=== PATIENT | male | born 1950 ===

== ENCOUNTER 2019-12-26 12:52 | Outpatient (REF) | payer MEDICARE, SELFPAY | END 2019-12-26 12:53 | disposition home or self-care (01) | LOC: HO.LAB 12:52 | PROVIDERS: PCP Internal Medicine; Visit Provider Internal Medicine | DX: Z20.828 Contact with and (suspected) exposure to other viral communicable diseases (principal) | CPT/HCPCS: 87635 ==

== ENCOUNTER 2020-03-13 11:53 | Outpatient (REF) | payer MEDICARE, MEDICAID, SELFPAY | END 2020-03-13 11:54 | disposition home or self-care (01) | LOC: HO.LAB 11:53 | PROVIDERS: Visit Provider Internal Medicine | DX: Z20.822 Contact with and (suspected) exposure to COVID-19 (principal) | CPT/HCPCS: 36415; C9803; U0003 ==

== ENCOUNTER 2022-08-21 16:30 | Emergency (ER) | payer MEDICARE, MEDICAID, SELFPAY ==
--- NOTE | ~2022-08-21 | XR_ITS ---
EXAMINATION: XR CHEST CLINICAL INFORMATION: Reason for Exam cough COMPARISON: Chest radiograph 10/13/2018 TECHNIQUE: 2 views of the chest FINDINGS: Lines and tubes: None. Low lung volumes. Streaky bibasilar airspace opacities likely reflect atelectasis. No pleural effusion. No pneumothorax. Unchanged cardiomediastinal silhouette. XR/XR chest 2V IMPRESSION: Low lung volumes. Streaky bibasilar airspace opacities likely reflect atelectasis.
[2022-08-21 16:43] VITALS: BP 148/94; PULSE 80; RESP 18; TEMP 36.8; O2SAT 96; BMI 30.7
--- NOTE | 2022-08-21 16:43 | ED.GENADULT ---
HPI - General Adult General Chief complaint: General Medical Stated complaint: Body aches/Sore throat Time Seen by Provider: 08/21/22 20:51 Source: patient Mode of arrival: ambulatory Limitations: no limitations History of Present Illness HPI narrative: 71-year-old male presents with fatigue, malaise, diffuse generalized headache without vision changes or dizziness, myalgias, sore throat, congestion and chest, dry cough, subjective fevers and chills for the past 3 days worsening. Patient reports that at home with similar symptoms. Denies chest pain, shortness of breath, nausea, vomiting, vision changes, dizziness, weakness, abdominal pain, changes in bowel habits or urination. Related Data Previous Rx's Medication Instructions Recorded albuterol sulfate 90 mcg/actuation 2 inh inhalation Q4-6H PRN 08/21/22 breath activated powder inhaler shortness of breath or wheezing #1 ea azithromycin 250 mg tablet See Rx Instructions PO .COMPLEX #6 08/21/22 tabs prednisone 20 mg tablet 40 mg PO DAILY 5 days #10 tabs 08/21/22 Allergies Allergy/AdvReac Type Severity Reaction Status Date / Time No Known Allergies Allergy Unverified 11/16/19 16:11 Review of Systems Review of Systems: Constitutional : No Weight loss, + Fever, + Chills, + Fatigue, + Malaise ENT/Mouth : No sore throat, No Rhinorrhea Eyes: No Eye Pain, No Swelling, No Redness Cardiovascular : No Chest Pain, No SOB, No Dyspnea on Exertion, No Orthopnea, No Edema, No Palpitations Respiratory : No Cough, No Sputum, No Wheezing Gastrointestinal : No Nausea, No Vomiting, No Diarrhea, No Constipation, No abdominal Pain, No Hematochezia, No Melena Genitourinary : No Dysuria, No Urinary Frequency, No Hematuria, Musculoskeletal : No joint pain, + Myalgias, No Joint Swelling Skin : No Skin Lesions, No rash Neuro : No Weakness, No Numbness, No Dizziness, + Headache Psych : No Anxiety/Panic, No Depression All other systems reviewed and are negative Yes all other systems are reviewed and are negative [facility] Past Medical History Attestation statement: The following information was validated with the patient. Source: old records reviewed and nursing notes reviewed Social History Social History Smoked in Last 30 Days: No Use of substances other than those prescribed or required for medical reasons: No Advance Directives: No Advance Directives Information Provided: No Physical Exam ED Vital Signs: Vital Signs - 24 hr 08/21/22 16:43 Temperature 98.3 F Pulse Rate 80 Respiratory Rate 18 Blood Pressure 148/94 H Pulse Oximetry 96 Oxygen Delivery Method Room Air BMI result Body Mass Index 30.7 Vital signs stable patient is saturating 96% even after ambulation Appearance: Alert.? Oriented X3.? No acute distress.? Head: Normocephalic, atraumatic, no step-offs or deformities Eyes: Pupils equal, round and reactive to light.? ENT: Pharynx normal.? No erythema, edema, exudates. Uvula midline. Speaking in full sentences controlling secretions well. Neck: Normal inspection.? Neck supple.? No meningeal sign CVS: Normal heart rate and rhythm.? Pulses normal.? Respiratory: No respiratory distress.? Breath sounds normal.? Abdomen: Soft and nontender.? Skin: Skin warm and dry.? Normal skin color.? Normal skin turgor.? Extremities: No lower extremity edema.? No calf ttp. 5/5 strength to bilateral upper and lower extremities Neuro: Oriented X 3.? No motor deficit.? No sensory deficit. CN 2-12 intact Course Course Course Narrative: RME performed by Maria Victoria Lynn PA-C. Patient is a 71 year old assigned male at presenting to the emergency department with body aches and a sore throat. Swabs ordered. Patient placed back in the waiting room pending room availability and results. Reevaluation(s) Reevaluation #1: X-ray with low lung volumes, strictly bibasilar airspace opacities likely reflect atelectasis, patient with cough and fever, will give a Z-Isaías, prednisone, steroids to cover for viral pneumonia. Patient appears well, like to go home. Will send him home with CDC guidelines. Educated patient on diagnosis and treatment plan, answered all question, patient verbalizes understanding. At this time patient will be discharged home, advised to return with new or worsening symptoms. Educated on worrisome signs and symptoms and when to return. At this time I feel comfortable discharge home. Time: 21:45 Medical Decision Making Medical Decision Making MDM Narrative: 71-year-old male presents with viral like symptoms for the past 3 days with at home with similar symptoms Physical exam benign. Likely viral illness. Unlikely epiglottitis, peritonsillar abscess, retropharyngeal abscess, threatened airway, strep pharyngitis, pneumonia, PE, ACS, CHF, intracranial hemorrhage, stroke, posterior stroke. Plan viral testing and x-ray Differential Diagnosis Differential Diagnoses: The differential diagnosis associated with the presentation includes Likely viral illness. Unlikely epiglottitis, peritonsillar abscess, retropharyngeal abscess, threatened airway, strep pharyngitis, pneumonia, PE, ACS, CHF, intracranial hemorrhage, stroke, posterior stroke. Admission/Observation Consideration of admission/observation: Escalation of care including admission/observation considered Unlikely Lab Data MDM Lab Attestation statement: I reviewed the patient's lab results. Labs: Lab Results 08/21/22 08/21/22 08/21/22 Range/Units 16:53 16:53 16:53 COVID-19 (KWADWO) Positive A (Negative) COVID-19 Clin Com See Note Influenza Type A (BIJAN) Negative (Negative) Influenza Type B (BIJAN) Negative (Negative) Influenza A & B Note See Note S. pyogenes GrpA BIJAN Negative (Negative) Independent Interpretation I performed an independent interpretation of an: Plain X-Ray (XR/XR chest 2V IMPRESSION: Low lung volumes. Streaky bibasilar airspace opacities likely reflect atelectasis. ) Radiology Impression Discussion of test interpretation with radiology: I have reviewed the radiologist's reading. Prescription Management I considered prescription management with: Antibiotic Core Measures AMI core measures followed: Yes Measure exclusions: not indicated Critical Care Time Critical Care Time Critical Care Time: No Discharge Plan Discharge Clinical Impression: COVID-19 Patient Disposition: Home, Self-Care Instructions: COVID-19 (Coronavirus Disease 2019) (ED) Additional Instructions: Take your medications as prescribed. If you were prescribed antibiotics today, it is important that you take your medication to their entirety, do not skip any doses, do not finish them early. Today you tested positive for COVID-19. Take Ibuprofen or Tylenol as needed for fevers or body aches. Quarantine for 5 days and ensure you wear a mask. After 5 days you should wear a mask for 5 days after that. Practice social distancing and good hand hygiene. Drink plenty of fluids. Follow-up with your primary care provider this week. Return to the emergency department with new or worsening symptoms. In case of emergency call 911 You can purchase a pulse oximeter from your local pharmacy or grocery store, and monitor your oxygen saturation if it goes below 94% you should return to the emergency department for further evaluation. XR/XR chest 2V IMPRESSION: Low lung volumes. Streaky bibasilar airspace opacities likely reflect atelectasis. ? Prescriptions: New azithromycin 250 mg tablet See Rx Instructions .ROUTE .COMPLEX Qty: 6 0RF Rx Instructions: For 250 mg dose pack: take 500 mg today (day 1), then 250 mg for 4 days (days 2-5) albuterol sulfate 90 mcg/actuation aerosol powdr breath activated 2 inh inhalation Q4-6H PRN (Reason: shortness of breath or wheezing) Qty: 1 0RF prednisone 20 mg tablet 40 mg PO DAILY 5 Days Qty: 10 0RF Referrals: Ted Urban MD [Primary Care Provider] - 2 days Stand Alone Forms: Work/School Release Interventions: ED Discharge Assessment Last Done: 08/21/22 21:37 Discharge Date/Time: 08/21/22 21:37
[2022-08-21 17:17] LABS: IDNOW Serial# BCCEAD1C
[2022-08-21 17:18] LABS: COVID-19 Test Positive (Negative)
[2022-08-21 17:30] LABS: IDNOW Serial# 9DB6401D; Influenza A Negative (Negative); Influenza B2 Negative (Negative)
[2022-08-21 17:58] LABS: IDNOW Serial# 08D9AD1C; Strep A Nucleic Acid Negative (Negative)
== END 2022-08-21 21:37 | disposition home or self-care (01) ==
PROVIDERS: Physician Assistant Medical; Emergency Provider Internal Medicine; PCP Internal Medicine
DX: U07.1 COVID-19 (principal); M79.10 Myalgia, unspecified site; R51.9 Headache, unspecified; R05.9 Cough, unspecified; Z79.899 Other long term (current) drug therapy
CPT/HCPCS: 71046; 87502; 87635; 87651; 99283

== ENCOUNTER 2022-09-07 16:46 | Outpatient (REF) | payer MEDICARE, MEDICAID, SELFPAY ==
[2022-09-07 17:03] LABS: MANUAL DIFF FLAG NO
[2022-09-07 17:36] LABS: Basophils Absolute Auto 0.1 X10*3/uL (0.0-0.2); Basophils Percent Auto 0.6 % (0-2); Eosinophils Absolute Auto 0.1 X10*3/uL (0.0-0.4); Eosinophils Percent Auto 0.8 % (0-4); Hematocrit 42.1 % (42.0-52.0); Hemoglobin 14.5 g/dl (14.0-18.0); Imm Gran Abs Auto 0.03 X10*3/uL (0.00-0.03); Imm Gran Pct Auto 0.3 % (0.0-0.4); Lymphocytes Absolute Auto 2.7 X10*3/uL (1.2-4.9); Lymphocytes Percent Auto 31.5 % (20-40); Mean Corpuscular HGB Conc 34.4 g/dl (31.0-36.0); Mean Corpuscular Volume 95.9 fL (80.0-98.0); Mean Platelet Volume 9.4 fL (9.4-12.4); Monocytes Absolute Auto 0.8 X10*3/uL (0.1-1.2); Monocytes Percent Auto 9.5 % (2-11); Neutrophils Absolute Auto 4.9 x10*3/uL (2.0-8.3); Neutrophils Percent Auto 57.3 % (45-73); Platelet Count 318 X10*3/uL (160-400); Red Blood Count 4.39 X10*6/uL (4.60-5.80); Red Cell Distribution Width 12.4 % (11.0-16.0); White Blood Count 8.6 X10*3/uL (4.8-10.8)
[2022-09-07 18:21] LABS: Alanine Aminotransferase 21 U/L (0-40); Alkaline Phosphatase 50 U/L (39-117); Anion Gap 14 (12-20); Aspartate Amino Transferase 15 U/L (5-37); Bilirubin Total 0.3 mg/dL (0.0-1.0); Blood Urea Nitrogen 10 mg/dL (9-16); Calcium 8.4 mg/dL (8.4-10.2); Carbon Dioxide 27 mmol/L (22-29); Chloride 105 mmol/L (96-108); Cholesterol 201 mg/dL; Estimated Glomerular Filt Rate > 60; Glucose Random 70 mg/dL (60-115); Sodium 142 mmol/L (135-145); Total Protein 7.6 g/dL (6.5-8.0)
[2022-09-07 18:37] LABS: Prostate Specific Antigen 0.59 ng/mL (<0.05-4.0)
== END 2022-09-07 16:47 | disposition home or self-care (01) ==
LOC: HO.LAB 16:46
PROVIDERS: PCP Internal Medicine; Visit Provider Internal Medicine
DX: Z12.5 Encounter for screening for malignant neoplasm of prostate (principal); R63.5 Abnormal weight gain; Z86.16 Personal history of COVID-19; H40.9 Unspecified glaucoma
CPT/HCPCS: 36415; 80053; 82465; 84153; 85025

== ENCOUNTER 2023-01-15 13:52 | Emergency (ER) | payer OTHER, MEDICARE, MEDICAID, SELFPAY ==
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
[2023-01-15 14:52] VITALS: BP 138/75; PULSE 74; RESP 16; TEMP 36.8; O2SAT 98; BMI 30.5
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
[2023-01-15 17:50] VITALS: BP 143/89; PULSE 72; RESP 18; O2SAT 96
== END 2023-01-15 18:00 | disposition home or self-care (01) ==
PROVIDERS: Emergency Provider Emergency Medicine; PCP Internal Medicine
DX: S39.012A Strain of muscle, fascia and tendon of lower back, initial encounter (principal); S16.1XXA Strain of muscle, fascia and tendon at neck level, initial encounter; S80.02XA Contusion of left knee, initial encounter; R51.9 Headache, unspecified; M54.2 Cervicalgia; V43.52XA Car driver injured in collision with other type car in traffic accident, initial encounter; Y93.9 Activity, unspecified; Y92.410 Unspecified street and highway as the place of occurrence of the external cause; Y99.9 Unspecified external cause status
CPT/HCPCS: 70450; 72100; 72125; 99284

== ENCOUNTER 2023-05-05 10:06 | Day surgery (SDC) | payer MEDICARE, MEDICAID, SELFPAY ==
[2023-05-03 15:26] VITALS: BMI 31.3
--- NOTE | 2023-05-04 10:45 | P.CONAN_ITS ---
Documented by User: Chichi Carias NP 05/04/23 10:45 HPI - Anesthesia Eval Consult details Narrative: 72yo M for Colonoscopy [facility] Active Problems Active Problems: All Active Problems (Updated 05/03/23 @ 15:27 by Anahi Ellsworth RN) COVID-19 (Acute) Past Medical History Medical History Glaucoma Surgical History Surgical History Hx of eye surgery H/O colonoscopy Social History Social History (Updated 05/03/23 @ 15:28 by Anahi Ellsworth RN) Alcohol intake: never Patient Tobacco Use Status: Never used Tobacco Use of substances other than those prescribed or required for medical reasons: No Are you DNR?: No Advance Directives: No Advance Directives Information Provided: Yes Meds Allergies Allergy/AdvReac Type Severity Reaction Status Date / Time No Known Allergies Allergy Unverified 11/16/19 16:11 Home Medications Medication Instructions Recorded Confirmed Last Taken Type bimatoprost 0.01 % eye drops 1 drp ophthalmic (eye) BEDTIME 05/03/23 05/03/23 Unknown History (Lumigan) brimonidine 0.2 % eye drops 1 drp ophthalmic (eye) BID 05/03/23 05/03/23 Unknown History dorzolamide 22.3 mg-timolol 6.8 1 drp ophthalmic (eye) BID 05/03/23 05/03/23 Unknown History mg/mL eye drops Exam Height,Weight and Vital Signs: Height 5 ft 6 in Weight 87.997 kg Assessment and Plan Assessment Anesthesia Assessment: Chart Reviewed Documented by User: Tyron Warner MD 05/05/23 11:15 [facility] Past Medical History Medical History Glaucoma Family History Family history of problems with anesthesia: No Surgical History Surgical History Hx of eye surgery H/O colonoscopy History of Problems with Anesthesia: No Social History Social History (Updated 05/03/23 @ 15:28 by Anahi Ellsworth RN) Alcohol intake: never Patient Tobacco Use Status: Never used Tobacco Use of substances other than those prescribed or required for medical reasons: No Are you DNR?: No Advance Directives: No Advance Directives Information Provided: Yes Meds Allergies Allergy/AdvReac Type Severity Reaction Status Date / Time No Known Allergies Allergy Unverified 11/16/19 16:11 Home Medications Medication Instructions Recorded Confirmed Last Taken Type bimatoprost 0.01 % eye drops 1 drp ophthalmic (eye) BEDTIME 05/03/23 05/03/23 Unknown History (Lumigan) brimonidine 0.2 % eye drops 1 drp ophthalmic (eye) BID 05/03/23 05/03/23 Unknown History dorzolamide 22.3 mg-timolol 6.8 1 drp ophthalmic (eye) BID 05/03/23 05/03/23 Unknown History mg/mL eye drops Exam Airway Mallampati Class: III TM Dist: <=3cm Neck ROM: Full Loose/Missing/Broken Teeth: No (rrr) Lungs: cta b/l Assessment and Plan Final Anesthetic Review Family History of Problems with Anesthesia: No History of Problems with Anesthesia: No NPO: Yes ASA Class: II Final Preanesthetic Review: No Changes in Pt Med Stat, Meds/Allgs Chart Reviewed, Consent Obtained/Reviewed and Anes Risks/Benef Reviewed Patient Risk: Low Procedure Risk: Low Anesthetic Plan Anesthetic Plan: MAC: Disposition: Standard PACU
[2023-05-05 10:17] VITALS: BMI 30.2
[2023-05-05 10:34] VITALS: BP 126/83; PULSE 76; RESP 16; TEMP 36.7; O2SAT 96
[2023-05-05] MEDS: Lactated Ringers 1,000 ML 100 ML IVCONT (10:42)
[2023-05-05 11:58] VITALS: BP 100/63; PULSE 84; RESP 16; TEMP 36.3; O2SAT 95
--- NOTE | 2023-05-05 12:02 | P.BOP_ITS ---
Brief Operative Note Date of Service: 05/05/23 Pre-op diagnosis: Screening Post-op diagnosis: other (Diverticulosis) Procedure: Colonoscopy to the cecum and TI Surgeon: Matthew Nagy MD Anesthesia: MAC Was an Wide Area Network Systems Administrator used for this Procedure?: No Estimated blood loss (mL): 0 Pathology: none sent Condition: stable Disposition: PACU
[2023-05-05 12:29] VITALS: BP 102/63; PULSE 73; RESP 18; TEMP 36.1; O2SAT 95
--- NOTE | 2023-05-05 12:47 | OP_ITS ---
DATE OF SERVICE: 05/05/2023 SURGEON: Matthew Nagy MD INDICATIONS: The patient presents for evaluation of colorectal cancer screening. Full consent has been obtained from him for this, including risks of bleeding and perforation. PREOPERATIVE DIAGNOSIS: Colorectal cancer screening. POSTOPERATIVE DIAGNOSIS: Colorectal cancer screening, sigmoid diverticulosis and internal hemorrhoids. PROCEDURE PERFORMED: Colonoscopy to the cecum and terminal ileum. ESTIMATED BLOOD LOSS: COMPLICATIONS: ANESTHESIA: Medication used: Monitored anesthesia care. ASSISTANTS: SPECIMENS: DESCRIPTION OF PROCEDURE: The patient was placed in the left lateral decubitus position. The digital rectal exam revealed no abnormalities. The Olympus video pediatric colonoscope was entered into the rectum and advanced easily to the cecum. Once in the cecum, I did identify a normal-appearing cecal pouch with appendiceal orifice and a normal-appearing ileocecal valve. The terminal ileum was cannulated and appeared normal. The scope was withdrawn back from the colon. The entire cecum and the ileocecal valve appeared normal. The scope was slowly withdrawn assessing all mucosal surfaces carefully. Preparation was excellent. I did not visualize any sign of polyps, colitis, or angiodysplasia. There was a mild amount of diverticulosis in the sigmoid colon. In the rectum, scope was retroflexed, visualizing minimal internal hemorrhoids, but no other pathology. The rectal mucosa appeared normal. The scope was straightened and withdrawn from the patient. He tolerated the procedure well and was returned to the recovery area in stable condition. IMPRESSION: 1. Mild sigmoid diverticulosis. 2. Minimal internal hemorrhoids. PLAN: Given today's negative exam and his age, I do not think we need any further screening colonoscopies. He will, otherwise, see me on a p.r.n. basis. MD MARIN Abebe/RIOS / [phone]
== END 2023-05-05 13:04 | disposition home or self-care (01) ==
PROVIDERS: PCP Internal Medicine; Visit Provider Internal Medicine
PROC: 0DJD8ZZ Inspection of Lower Intestinal Tract, Via Natural or Artificial Opening Endoscopic (ICD-10-PCS; CPT 45378; principal; 2023-05-05 10:40)
DX: Z12.11 Encounter for screening for malignant neoplasm of colon (principal); K57.30 Diverticulosis of large intestine without perforation or abscess without bleeding; K64.8 Other hemorrhoids; H40.9 Unspecified glaucoma; Z79.899 Other long term (current) drug therapy; Z98.890 Other specified postprocedural states
CPT/HCPCS: G0121; J2704

== ENCOUNTER 2023-11-11 08:47 | Outpatient (REF) | payer MEDICARE, OTHER, SELFPAY ==
[2023-11-11 09:05] LABS: MANUAL DIFF FLAG NO
[2023-11-11 09:18] LABS: Basophils Absolute Auto 0.1 X10*3/uL (0.0-0.2); Basophils Percent Auto 0.6 % (0-2); Eosinophils Absolute Auto 0.1 X10*3/uL (0.0-0.4); Eosinophils Percent Auto 0.7 % (0-4); Hematocrit 43.2 % (42.0-52.0); Hemoglobin 15.2 g/dl (14.0-18.0); Imm Gran Abs Auto 0.03 X10*3/uL (0.00-0.03); Imm Gran Pct Auto 0.4 % (0.0-0.4); Lymphocytes Absolute Auto 3.1 X10*3/uL (1.2-4.9); Lymphocytes Percent Auto 36.7 % (20-40); Mean Corpuscular HGB Conc 35.2 g/dl (31.0-36.0); Mean Corpuscular Hemoglobin 33.7 pg (27.0-33.0); Mean Corpuscular Volume 95.8 fL (80.0-98.0); Mean Platelet Volume 9.3 fL (9.4-12.4); Monocytes Absolute Auto 0.7 X10*3/uL (0.1-1.2); Monocytes Percent Auto 8.4 % (2-11); Neutrophils Absolute Auto 4.5 x10*3/uL (2.0-8.3); Neutrophils Percent Auto 53.2 % (45-73); Platelet Count 266 X10*3/uL (160-400); Red Blood Count 4.51 X10*6/uL (4.60-5.80); White Blood Count 8.5 X10*3/uL (4.8-10.8)
[2023-11-11 09:49] LABS: Alanine Aminotransferase 14 U/L (0-40); Albumin Level 4.1 g/dL (3.5-5.0); Alkaline Phosphatase 52 U/L (39-117); Anion Gap 12 (12-20); Aspartate Amino Transferase 13 U/L (5-37); Bilirubin Total 0.5 mg/dL (0.0-1.0); Blood Urea Nitrogen 10 mg/dL (9-16); Calcium 9.1 mg/dL (8.4-10.2); Carbon Dioxide 28 mmol/L (22-29); Chloride 107 mmol/L (96-108); Cholesterol 181 mg/dL (<200); Estimated Glomerular Filt Rate > 60; Glucose Random 100 mg/dL (60-115); Potassium 4.6 mmol/L (3.3-5.1); Sodium 142 mmol/L (135-145); Total Protein 7.3 g/dL (6.5-8.0)
[2023-11-11 10:07] LABS: Prostate Specific Antigen 1.13 ng/mL (<0.05-4.0)
== END 2023-11-11 08:48 | disposition home or self-care (01) ==
LOC: HO.LAB 08:47
PROVIDERS: PCP Internal Medicine; Visit Provider Internal Medicine
DX: K57.30 Diverticulosis of large intestine without perforation or abscess without bleeding (principal); Z12.5 Encounter for screening for malignant neoplasm of prostate; E78.00 Pure hypercholesterolemia, unspecified
CPT/HCPCS: 36415; 80053; 82465; 84153; 85025

== ENCOUNTER 2024-02-09 09:18 | Outpatient (REF) | payer MEDICARE, OTHER, SELFPAY ==
--- NOTE | ~2024-02-09 | XR_ITS ---
EXAMINATION: XR CHEST CLINICAL INFORMATION: WEIGHT LOSS COMPARISON: 08/21/2022 TECHNIQUE: 2 views of the chest were obtained. FINDINGS: Lungs clear. No pleural effusions. Heart and pulmonary vessels are normal. XR/XR chest 2V IMPRESSION: No active disease. Electronically signed by: Ronni Madison MD 02/09/2024 01:47 PM [facility]
[2024-02-09 09:36] LABS: MANUAL DIFF FLAG NO
[2024-02-09 10:08] LABS: Basophils Percent Auto 0.4 % (0-2); Eosinophils Percent Auto 0.5 % (0-4); Hematocrit 43.6 % (42.0-52.0); Imm Gran Abs Auto 0.01 X10*3/uL (0.00-0.03); Imm Gran Pct Auto 0.1 % (0.0-0.4); Lymphocytes Absolute Auto 2.5 X10*3/uL (1.2-4.9); Lymphocytes Percent Auto 34.4 % (20-40); Mean Corpuscular HGB Conc 34.4 g/dl (31.0-36.0); Mean Corpuscular Volume 95.8 fL (80.0-98.0); Mean Platelet Volume 9.6 fL (9.4-12.4); Monocytes Absolute Auto 0.7 X10*3/uL (0.1-1.2); Monocytes Percent Auto 9.8 % (2-11); Neutrophils Percent Auto 54.8 % (45-73); Platelet Count 275 X10*3/uL (160-400); Red Blood Count 4.55 X10*6/uL (4.60-5.80); Red Cell Distribution Width 12.7 % (11.0-16.0); White Blood Count 7.4 X10*3/uL (4.8-10.8)
[2024-02-09 10:13] LABS: Estimated Average Glucose 103 mg/dL; Hemoglobin A1C 120.6238 umol/L; Hemoglobin A1c % 5.2 % (<6.0); Total Hemoglobin (HGBA1C) 3635.6486 umol/L
[2024-02-09 10:15] LABS: Appearance Urine Clear; Color Urine Yellow; Glucose Urine UA Negative (Negative); Leukocyte Esterase Urine Negative (Negative); Nitrite Urine Negative (Negative); PH 5.5 (5.0-9.0); Specific Gravity - Urine 1.025 (1.005-1.025); Urine Blood Negative (Negative); Urine Ketones Negative (Negative); Urine Protein Negative (Neg-Trace)
[2024-02-09 10:52] LABS: Alanine Aminotransferase 17 U/L (0-40); Albumin Level 4.1 g/dL (3.5-5.0); Alkaline Phosphatase 51 U/L (39-117); Anion Gap 9 (12-20); Aspartate Amino Transferase 17 U/L (5-37); Bilirubin Total 0.5 mg/dL (0.0-1.0); Blood Urea Nitrogen 13 mg/dL (9-16); Calcium 9.4 mg/dL (8.4-10.2); Carbon Dioxide 29 mmol/L (22-29); Chloride 108 mmol/L (96-108); Cholesterol 177 mg/dL (<200); Estimated Glomerular Filt Rate > 60; Glucose Random 102 mg/dL (60-115); Potassium 4.8 mmol/L (3.3-5.1); Sodium 141 mmol/L (135-145); Total Protein 7.3 g/dL (6.5-8.0)
[2024-02-09 11:02] LABS: Prostate Specific Antigen 0.97 ng/mL (<0.05-4.0)
--- OUTSIDE RECORDS SUMMARY | 2024-02-09 23:41 | XMS_ITS ---
Author Organization [facility] Address [address] [place] [id number] Care Team Providers Care Handicapper [employer] Name Role Phone Ted Urban MD Primary Care Provider Kaylen kumari NagyMatthew Unavailable [phone] ALLERGIES No Known Allergies REASON FOR VISIT Patient presents today for a COLON SCREENING MEDICATIONS Medication SIG (Take, Route, Frequency, Duration) Notes Start Date End Date Status Lumigan 0.01 % Ophthalmic for 75 Active Brimonidine Tartrate 0.2 % Ophthalmic for 90 Active Dorzolamide HCl-Timolol Mal 2-0.5 % INSTILL 1 DROP INTO BOTH EYES TWICE A DAY Ophthalmic for 90 Active SOCIAL HISTORY Tobacco Use: Social History Observation Description Date Details (start date - stop date) Never Smoker NA - NA Sex Assigned At : Social History Observation Description Sex Assigned At Unknown Tobacco Use/Smoking Question Answer Notes Patient is a nonsmoker Alcohol Screen Question Answer Notes Did you have a drink containing alcohol in the p ast year? No Points 0 Interpretation Negative PROBLEMS Problem Type ICD Code Onset Dates Problem Status W/U Status Risk SNOMED Code Notes Problem Colon cancer screening (Z12.11) Active confirmed 106298991 Problem Preprocedural examination (Z01.818) Active confirmed 920891193370938 VITAL SIGNS BMI 31.31 kg/m2 02/09/2023 Blood pressure systolic 00 mm Hg 02/10/20 23 Blood pressure diastolic 00 mm Hg 023 Height 5 ft 6 in in 02/09/2023 Temperature 98.2 degrees Fahrenheit 02/10/20 23 Weight 194 lbs 02/09/2023 Encounters Encounter Location Date Provider Diagnosis [facility] [address] [place] [address] 02/09/2023 Matthew Nagy Colon cancer screeni ng Z12.11 and Preprocedural examination Z01.818 ASSESSMENTS Encounter Date Diagnosis Assessment Notes Treatment Notes Treatment Clinical Notes 02/09/2023 Colon cancer screening (ICD-10 - Z12.11) 02/09/2023 Preprocedural examination (ICD-10 - Z01.818) PLAN OF TREATMENT Future Test Test Name Order Date COLONOSCOPY 02/09/2023 Next Appt Details Follow Up: prn, Reason: Progress Notes * Examination Category Sub-Category Detail Notes General Examination GENERAL APPEARANCE: pleasant , well nourished, well developed, in no acute distress HEAD: EYES: sclera non-icteric EARS: NOSE: THROAT: NECK/THYROID: no cervical lymphade nopathy, neck supple HEART: S1, S2 normal CHEST: LUNGS: clear to auscultatio n bilaterally ABDOMEN: normal bowel sounds, no guarding or rigidity, no guarding or rigidity, no masses palpable, soft, nontender, nondistended NEUROLOGIC: alert and oriented SKIN: nonjaundiced, no spi krystyna angiomata EXTREMITIES: no edema PERIPHERAL PULSES: BACK: BREASTS: MUSCULOSKELETAL: MALE GENITOURINARY: LYMPH NODES: RECTAL EXAM: FEMALE GENITOURINARY: ORAL CAVITY: mucosa moist
--- OUTSIDE RECORDS SUMMARY | 2024-02-09 23:41 | XMS_ITS ---
Author Organization [facility] Address [address] [place] [address] Care Team Providers Care 3D Animator Name Role Phone Ted Urban MD Primary Care Provider Merlea Matthew Cevallos Unavailable [phone] REASON FOR VISIT screening PROBLEMS Problem Type ICD Code Onset Dates Problem Status W/U Status Risk SNOMED Code Notes Problem Diverticulosis of large intestine without perforation or abscess without bleeding (K57.30) Active confirmed Diverticul ar disease of colon (684409194) Encounters Encounter Location Date Provider Diagnosis [facility] Out[facility] [address] [place], [place] [phone] 05/05/2023 Matthew Nagy Encounter for scre ening colonoscopy Z12.11 ; Diverticulosis of large intestine without perforation or abscess without bleeding K57.30 and Other hemorrhoids K64.8 ASSESSMENTS Encounter Date Diagnosis Assessment Notes Treatment Notes Treatment Clinical Notes 05/05/2023 Encounter for screening colonoscopy (ICD-10 - Z12.11) 05/05/2023 Diverticulosis of large intestine without perforation or abscess without bleeding (ICD-10 - K57.30) 05/05/2023 Other hemorrhoids (ICD-10 - K64.8) PLAN OF TREATMENT No Information
--- OUTSIDE RECORDS SUMMARY | 2024-02-09 23:41 | XMS_ITS ---
Author Organization [facility] Address [address] [place] [address] Care Team Providers Care Hotel Desk Clerk Name Role Phone Ted Urban MD Primary Care Provider Matthew Cosby Unavailable [phone] REASON FOR VISIT bowel prep MEDICATIONS Medication SIG (Take, Route, Frequency, Duration) Notes Start Date End Date Status Dulcolax (colon prep) 5 MG take at 3:00 p.m and 7:00p.m. Orally two tablets twice a day for one day for 1 day 02/09/2023 Active MiraLax (colon prep) 17 GM/SCOOP 1 238Gm bottle mixed with Gatorade or Crystal Light Orally begin at 5:00 p.m. the day before the procedure for 1 day 02/09/2023 Active Encounters Encounter Location Date Provider Diagnosis [facility] [address] [address] 02/09/2023 Matthew Nagy PLAN OF TREATMENT Medication Medication Name Sig Start Date Stop Date Notes Dulcolax (colon prep) 5 MG take at 3:00 p.m and 7:00p.m. Orally two tablets twice a day for one day for 1 day 02/09/2023 MiraLax (colon prep) 17 GM/SCOOP 1 238Gm bottle mixed with Gatorade or Crystal Light Orally begin at 5:00 p.m. the day before the procedure for 1 day 02/09/2023
--- OUTSIDE RECORDS SUMMARY | 2024-02-09 23:42 | XMS_ITS | Patient Health Record ---
Author Organization [facility] Address [address] [place] [address] Care Team Providers Care Potter Or Ceramic Artist Name Role Phone Ted Urban MD Primary Care Provider Matthew Cosby Unavailable [phone] ALLERGIES No Known Allergies REASON FOR REFERRAL No Information MEDICATIONS Medication SIG (Take, Route, Frequency, Duration) Notes Start Date End Date Status Lumigan 0.01 % Ophthalmic for 75 Active Dulcolax (colon prep) 5 MG take at 3:00 p.m and 7:00p.m. Orally two tablets twice a day for one day for 1 day 02/09/2023 Active Brimonidine Tartrate 0.2 % Ophthalmic for 90 Active MiraLax (colon prep) 17 GM/SCOOP 1 238Gm bottle mixed with Gatorade or Crystal Light Orally begin at 5:00 p.m. the day before the procedure for 1 day 02/09/2023 Active Dorzolamide HCl-Timolol Mal 2-0.5 % INSTILL [...] Problem Colon cancer screening (Z12.11) Active confirmed 121715215 Problem Preprocedural examination (Z01.818) Active confirmed 383513689354516 Problem Diverticulosis of large intestine without perforation or abscess without bleeding (K57.30) Active confirmed Diverticul ar disease of colon (634278440) VITAL SIGNS Temperature 98.2 degrees Fahrenheit 02/09/2023 Blood pressure diastolic 00 mm Hg 02/09/2023 Height 5 ft 6 in in 02/09/2023 Blood pressure systolic 00 mm Hg 02/09/2023 Weight 194 lbs 02/09/2023 BMI 31.31 kg/m2 02/09/2023 Encounters Encounter Location Date Provider Diagnosis [facility] [address] [place], [place] [phone] 05/05/2023 Matthew Nagy Encounter for screen ing colonoscopy Z12.11 ; Diverticulosis of large intestine without perforation or abscess without bleeding K57.30 and Other hemorrhoids K64.8 [facility] [address] [place] [phone] 02/09/2023 Matthew Nagy Colon cancer screeni ng Z12.11 and Preprocedural examination Z01.818 [facility] [address] [place] [phone] 02/09/2023 Matthew Nagy ASSESSMENTS Encounter Date Diagnosis Assessment Notes Treatment Notes Treatment Clinical Notes 05/05/2023 Encounter for screening colonoscopy (ICD-10 - Z12.11) 05/05/2023 Diverticulosis of large intestine without perforation or abscess without bleeding (ICD-10 - K57.30) 02/09/2023 Colon cancer screening (ICD-10 - Z12.11) 02/09/2023 Preprocedural examination (ICD-10 - Z01.818) 05/05/2023 Other hemorrhoids (ICD-10 - K64.8) PLAN OF TREATMENT Future Test Test Name Order Date COLONOSCOPY 02/09/2023 Insurance Providers Payer Name Payer Address Payer Phone Subscriber Number Group Number Insured Name Patient Relationship to Insured Coverage Start Date Coverage End Date [facility] [address] [place] [phone] [id number] MARYSOL JOE Self - patient is the insured MEDICAID OF [facility] [address] [place] [phone] [id number] MARYSOL JOE Self - patient is the insured MEDICAL (GENERAL) HISTORY Medical History History ICD Code Denies DC,DM,CVA,Lung disease,renal dise ase He reports a negative screen ing colonoscopy at approximately age 61 [address] Moreno Surgical History Surgery Date(Month/Year) Eyes for glaucoma 2022
== END 2024-02-09 09:19 | disposition home or self-care (01) ==
LOC: HO.LAB 09:18
PROVIDERS: PCP Internal Medicine; Visit Provider Internal Medicine
DX: R63.4 Abnormal weight loss (principal); Z12.5 Encounter for screening for malignant neoplasm of prostate; H40.9 Unspecified glaucoma; Z13.1 Encounter for screening for diabetes mellitus
CPT/HCPCS: 36415; 71046; 80053; 81003; 82465; 83036; 84153; 85025

== ENCOUNTER 2024-10-23 13:01 | Outpatient (AMB) | payer MEDICARE, MEDICAID, SELFPAY ==
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
--- NOTE | 2024-10-23 13:03 | A.OFFPC_ITS ---
Vital Signs 10/23/24 13:04 Height 5 ft 6 in Weight 178 lb BMI 28.7 BP 112/78 Blood Pressure Location Lt brachial Position Sitting Respiration 16 Pulse 83 Pulse Source Pulse Oximeter Temp 97.1 F Temp Source Temporal Artery Scan Pulse Oximetry (%) 96 Oxygen Delivery Method Room Air Intake Visit Reasons: Routine [employer] Docent Required: Yes Accompanied by: Friend Allergies No Known Allergies Allergy (Verified 10/23/24 13:03) Tobacco use date assessed: 10/23/24 HPI HPI Comments History of Present Illness Details The patient is a 74-year-old male presenting for a wellness visit and routine follow-up for his existing condition of glaucoma. He reports that his glaucoma affects his left eye, and he uses prescribed eye drops for management. The patient confirmed the use of two specific medications, dorzolamide and timolol, with a regimen of three drops, twice daily. He denies any new symptoms or exacerbations related to glaucoma during this visit. There is no mention of any other systemic conditions or acute health issues brought up in this encounter, highlighting that the patient?s visit is primarily for routine health maintenance purposes. Medical History: - Glaucoma - No other medical conditions explicitly reported Surgical History: - Left eye surgery (details unspecified) Medications: - Dorzolamide eye drops, three times, tw ice a day, for glaucoma - Timolol eye drops, three times, twice a day, for glaucoma Family History: - Diabetes in sister - No family history of cancer or heart d isease reported [facility] Medical History (Updated 10/23/24 @ 13:40 by Mike Brown MD) Healthcare maintenance Glaucoma Surgical History (Updated 10/19/24 @ 16:53 by Ludy Chinchilla) Hx of eye surgery H/O colonoscopy (~05/05/23) Social History (Updated 05/03/23 @ 15:28 by Anahi Ellsworth RN) Alcohol intake: never Patient Tobacco Use Status: Never used Tobacco e-Cigarette/Vaping Use: Never Used Questionnaire PHQ-9 Over the last 2 weeks, how often have you been bothered by any of the following problems? 1. Little interest or pleasure in doing things: not at all 2. Feeling down, depressed, or hopeless: not at all 3. Trouble falling or staying asleep, or sleeping too much: not at all 4. Feeling tired or having little energy: not at all 5. Poor appetite or overeating: not at all 6. Feeling bad about yourself - or that you are a failure or have let yourself or your family down: not at all 7. Trouble concentrating on things, such as reading the newspaper or watching television: not at all 8. Moving or speaking so slowly that other people could have noticed. Or the opposite - being so fidgety or restless that you have been moving around a lot more than usual: not at all 9. Thoughts that you would be better off or of hurting yourself in some way: not at all Total score: 0 Depression Screening Interpretation: Negative Depression Screening Done: Yes Source: Developed by Drs. Matthew Sanchez, Annie Busch, Gibson Elkins and colleagues, with an educational maame from [facility]. Thrive Questionnaire I am a: Patient What is your living situation today?: I have a steady place to live Within the past 12 months, did the food you bought not last and you didn't have the money to get more?: Never true Within the past 12 months, did you worry whether your food would run out before you got money to buy more?: Never true Do you have trouble paying for medicines?: No Do you have trouble getting transportation to medical appointments?: No Do you have trouble paying your heating and electricity bill?: No Do you have trouble taking care of your child, family member or friend?: No Do you have trouble with day-to-day activities such as bathing, preparing meals, shopping, managing finances, etc.?: No Are you currently unemployed and looking for a job?: No Are you interested in more education?: No THRIVE Score: 0 AUDIT C Alcohol Use Questionnaire (AUDIT-C) 1. How often do you have a drink containing alcohol?: Never Total Score: 0 Score Reviewed/Action Taken: Yes SHAHRZAD-7 AMB Questionnaire SHAHRZAD-7 Feeling nervous, anxious, or on edge: 0 = Not at all Not being able to stop or control worryin = Not at all Worrying too much about different things: 0 = Not at all Trouble relaxin = Not at all Being so restless that it is hard to sit still: 0 = Not at all Becoming easily annoyed or irritable: 0 = Not at all Feeling afraid as if something awful might happen: 0 = Not at all Total SHAHRZAD-7 score (0-4 normal; 5-9 mild; 10-14 moderate; 15-21 severe): 0 Source: Developed by Drs. Matthew Sanchez, Annie Busch, Gibson Elkins and colleagues, with an educational maame from [facility]. SHAHRZAD-7 Assessment Billing SHAHRZAD-7 Assessment Tool: SHAHRZAD-7 Assessment 00294 Review of Systems Const Details: - Eyes: Reports glaucoma in the left eye - Neurological: Denies headaches except for an occurrence once a year - Respiratory: Denies chest pain and shortness of breath - Musculoskeletal: Mild discomfort in the right leg after extensive walking - Psychiatric: Denies anxiety, depression, and restlessness All systems reviewed & are unremarkable except as noted in HPI and below Physical exam (Primary Care) Vital Signs: Last Vital Signs Temp 97.1 F 10/23/24 13:04 Pulse 83 10/23/24 13:04 Resp 16 10/23/24 13:04 BP 112/78 10/23/24 13:04 Pulse Ox 96 10/23/24 13:04 Oxygen Delivery Method Room Air 10/23/24 13:04 BMI result Body Mass Index 28.7 Tobacco/Smoking Status: Tobacco use Status Tobacco use date assessed 10/23/24 10/23/24 13:08 Patient Tobacco Use Status Never used Tobacco 10/23/24 13:08 e-Cigarette/Vaping Use Never Used 10/23/24 13:08 PHQ-9: PHQ-9 Score PHQ-9: Total score 0 10/23/24 13:16 Depression Screening Interpretation: Negative Const Other: General: Alert and oriented, Well nourished, No acute distress. Eye: Pupils are equal, round and reactive to light, Intact accommodation, Extraocular movements are intact, Normal conjunctiva, Vision unchanged, Glaucoma in the left eye. HENT: Normocephalic, Atraumatic, Tympanic membranes are clear, Normal hearing, Oral mucosa is moist, No pharyngeal erythema, Ear canals patent, Missing many teeth. Respiratory: Lungs CTA bilaterally, No wheeze, Respirations are non-labored. Cardiovascular: Regular rate, Regular rhythm, S1 auscultated, S2 auscultated, No murmur, Good pulses equal in all extremities, Normal peripheral perfusion, No edema. Gastrointestinal: Soft, Non-tender, Non-distended, Normal bowel sounds, No organomegaly. Musculoskeletal: Normal range of motion, Normal strength, No tenderness, No swelling, No deformity, Normal gait. Integumentary: Warm, Dry, [place], Intact, Small cut noted. Neurologic: Alert, Oriented, Normal sensory, Normal motor function, No focal defects, Cranial Nerves II-XII are grossly intact, Normal deep tendon reflexes. Psychiatric: Cooperative, Appropriate mood & affect, Normal judgment, Sometimes experiences depression when not eating. Coding Level of Care Code Est Pt Level 3 (48287) Diagnoses Healthcare maintenance Z00.00 Glaucoma H40.9 Additional Codes SHAHRZAD-7 Assessment Billing - SHAHRZAD-7 Assessment Tool: SHAHRZAD-7 Assessment 88886 ([id number]) Assessment & Plan Assessment & Plan (1) Healthcare maintenance: Comment: - Obtain Baseline Labs and will re-evaluate in 3 months Code(s): Z00.00 - Encounter for general adult medical examination without abnormal findings Category: Medical Plan: - Ordered Labs (2) Glaucoma: Code(s): H40.9 - Unspecified glaucoma Plan: Currently on eye drops with complete loss of vision in left eye. Does follow with opthalmolgy Plan: - Continue Follow up with optho Orders: Orders Comprehensive Met. Panel 1 Month H40.9 - Unspecified glaucoma, Z00.00 - Encounter for general adult medical examination without abnormal findings Complete Blood Count Auto Diff 1 Month H40.9 - Unspecified glaucoma, Z00.00 - E ncounter for general adult medical examination without abnormal findings Hemoglobin A1c 1 Month H40.9 - Unspecified glaucoma, Z00.00 - Encounter for general adult medical examination without abnormal findings TSH reflex Free T4 1 Month H40.9 - Unspecified glaucoma, Z00.00 - Encounter for general adult medical examination without abnormal findings Vitamin D 25-OH Total 1 Month H40.9 - Unspecified glaucoma, Z00.00 - Encounter for general adult medical examination without abnormal findings Lipid Panel 1 Month H40.9 - Unspecified glaucoma, Z00.00 - Encounter for general adult medical examination without abnormal findings Patient Instructions: During the visit, I discussed the patient's overall good health status and the importance of regular health maintenance checks. I emphasized the benefits of his current medication regimen for glaucoma management and verified his consent to continue with the dorzolamide and timolol eye drops. Follow-up appointments were planned, with routine blood work scheduled prior to the next visit. We reviewed lifestyle aspects, including his cessation of alcohol consumption decades ago and his ongoing physical activity. The patient was counseled on the significance of dental visits, given the noted dental issues during the exam. I reassured the patient of his current stable health profile, enhanced by a supportive medication plan and lifestyle. - Continue using dorzolamide and timolol eye drops as prescribed. - Maintain regular walking and physical activity. - Attend the scheduled follow-up appointment in six months. - Go for routine blood tests as discussed. - Consider visiting a dentist to address dental concerns.
[2024-10-23 13:04] VITALS: BP 112/78; PULSE 83; RESP 16; TEMP 36.2; O2SAT 96; BMI 28.7
--- OUTSIDE RECORDS SUMMARY | 2024-10-23 14:14 | XMS_ITS | Patient Health Record ---
Author Organization [facility] Address [address] [place] [address] Care Team Providers Care Business Support Liaison Name Role Phone Wilmar (RETIRED) Ted NORTON Primary Care Provide r Matthew Dyson Unavailable [phone] Allergies No Known Allergies Reason For Referral No Information Medications Medication SIG (Take, Route, Frequency, Duration) Notes [...] TWICE A DAY Ophthalmic for 90 Active Social History Tobacco Use: Social History Observation Description Date Details (start date - stop date) Never Smoker NA - NA Tobacco Use/Smoking Question Answer Notes Patient is a nonsmoker Alcohol Screen Question Answer Notes Did you have a drink containing alcohol in the p ast year? No Points 0 Interpretation Negative Section Notes: Nonsmoker; no alcohol Problems Problem Type SNOMED Code ICD Code Onset Dates Problem Status W/U Status Risk Notes Problem 126225393 Colon cancer screening (Z12.11) Active confirmed Problem Diverticular disease of colon (070370346) Diverticulosis of large intestine without perforation or abscess without bleeding (K57.30) Active confirmed Problem [id number] Preprocedural examination (Z01.818) Active confirmed Plan Of Treatment Future Test Test Name Order Date COLONOSCOPY 02/09/2023 Insurance Providers Payer Name Payer Address Payer Phone Subscriber Number Group Number Insured Name Patient Relationship to Insured Coverage Start Date Coverage End Date [facility] [address] [place] [phone] [id number] MARYSOL JOE Self - patient is the insured MEDICAID OF [facility] [address] [place] [address] [id number] MARYSOL JOE Self - patient is the insured Medical (General) History Medical History History ICD Code Denies CA,DM,CVA,Lung disease,renal dise ase He reports a negative screen ing colonoscopy at approximately age 61 [address] Moreno Surgical History Surgery Date(Month/Year) Eyes for glaucoma 2022
== END 2024-10-23 13:54 | disposition home or self-care (01) ==
LOC: HO.HMCHD 13:01
PROVIDERS: PCP Student in an Organized Health Care Education/Training Program; Visit Provider Student in an Organized Health Care Education/Training Program
DX: Z00.00 Encounter for general adult medical examination without abnormal findings (principal); H40.9 Unspecified glaucoma

== ENCOUNTER → 2024-10-23 13:01 | Outpatient (BNVA) | payer MEDICARE, OTHER, SELFPAY | PROVIDERS: PCP Internal Medicine; Visit Provider Student in an Organized Health Care Education/Training Program | DX: Z00.00 Encounter for general adult medical examination without abnormal findings (principal); H40.9 Unspecified glaucoma; Z13.31 Encounter for screening for depression | CPT/HCPCS: 96127; 99202 ==

== ENCOUNTER 2024-11-29 12:09 | Outpatient (REF) | payer SELFPAY ==
[2024-11-29 12:28] LABS: MANUAL DIFF FLAG NO
[2024-11-29 13:06] LABS: Hematocrit 42.1 % (42.0-52.0); Hemoglobin 14.8 g/dl (14.0-18.0); Imm Gran Abs Auto 0.02 X10*3/uL (0.00-0.03); Imm Gran Pct Auto 0.2 % (0.0-0.4); Lymphocytes Absolute Auto 3.1 X10*3/uL (1.2-4.9); Mean Corpuscular HGB Conc 35.2 g/dl (31.0-36.0); Mean Corpuscular Hemoglobin 33.6 pg (27.0-33.0); Mean Corpuscular Volume 95.5 fL (80.0-98.0); NRBC Abs Auto 0.000 X10*3/uL (0.0-0.012); NRBC Pct Auto 0.0 /100WBC (0.0-0.2); Platelet Count 273 X10*3/uL (160-400); Red Blood Count 4.41 X10*6/uL (4.60-5.80); White Blood Count 9.7 X10*3/uL (4.8-10.8)
[2024-11-29 13:51] LABS: Alanine Aminotransferase 15 U/L (0-40); Albumin Level 4.5 g/dL (3.5-5.0); Alkaline Phosphatase 53 U/L (39-117); Anion Gap 10 (12-20); Aspartate Amino Transferase 21 U/L (5-37); Blood Urea Nitrogen 9 mg/dL (9-16); Calcium 8.9 mg/dL (8.4-10.2); Carbon Dioxide 28 mmol/L (22-29); Chloride 107 mmol/L (96-108); Cholesterol 171 mg/dL (<200); Estimated Glomerular Filt Rate > 60; HDL Cholesterol 39 mg/dL (>40); Potassium 3.9 mmol/L (3.3-5.1); Sodium 141 mmol/L (135-145); Total Protein 7.3 g/dL (6.5-8.0); Triglycerides 97 mg/dL (<150)
== END 2024-11-29 12:10 | disposition home or self-care (01) ==
LOC: HO.LAB 12:09
PROVIDERS: PCP Student in an Organized Health Care Education/Training Program; Visit Provider Student in an Organized Health Care Education/Training Program
DX: Z00.00 Encounter for general adult medical examination without abnormal findings (principal); Z13.1 Encounter for screening for diabetes mellitus; Z13.29 Encounter for screening for other suspected endocrine disorder; Z13.6 Encounter for screening for cardiovascular disorders; H40.9 Unspecified glaucoma
CPT/HCPCS: 36415; 80053; 80061; 82306; 83036; 84443; 85025